=== PATIENT | male | born 1995 | race Caucasian/White ===

== ENCOUNTER 2019-10-23 10:01 | Emergency (ER) | payer BC, MEDICAID ==
[~2019-10-23] VITALS: Ht 173 cm; Wt 68.0 kg
[~2019-10-23 10:01] MED LIST: ACHD5005 PO; CEPH-507 PO; CEPH500C PO; KETO75CA PO
[2019-10-23] MEDS ORDERED: OSLT75C PO (11:12)
--- NOTE | 2019-10-23 11:12 | ED Cough/URI ---
General Chief Complaint: Cough/Cold/Flu Symptoms Stated Complaint: COUGH/BODY ACHES Nursing Triage Note: Patient reports cough and body aches starting 1 day ago Sepsis Screen: No Definite Risk Allergies and Home Medications Allergies Coded Allergies: No Known Drug Allergies (Unverified , 06/14/14) Home Medications No Active Prescriptions or Reported Meds Past Ntisubd-Jfmjkc-Mrzyhp Hx Patient Social History Alcohol Use: Regular Use Alcohol Beverage of Choice: Beer Recreational Drug Use: No Smoking Status: Current Everyday Smoker Type Used: Cigarettes Recent Foreign Travel: No Contact w/Someone Who Travel: No Recent Infectious Disease Expo: No Immunizations Up To Date Tetanus Booster (TDap): Less than 5yrs Seasonal Allergies Seasonal Allergies: No Past Medical History Surgeries: No Respiratory: No Cardiac: No Neurological: No Reproductive Disorders: No Sexually Transmitted Disease: No HIV/AIDS: No Gastrointestinal: No Musculoskeletal: No Endocrine: No Cancer: No Psychosocial: No Integumentary: No Blood Disorders: No Adverse Reaction/Blood Tranf: No Family Medical History No Pertinent Family Hx Physical Exam Vital Signs - First Documented 10/23/19 10:09 Temp 38.1 Pulse 83 Resp 18 B/P (MAP) 123/71 (88) Pulse Ox 98 Capillary Refill : Less Than 3 Seconds Height: 5'4" Weight: 130lbs. oz. [id number]; 22.00 BMI Method:Estimated Procedures/Interventions Suture Size: 4-0 Progress/Results/Core Measures Suspected Sepsis Recent Fever Within 48 Hours: No Infection Criteria Present: Suspected New Infection New/Unexplained Altered Menta: No Sepsis Screen: No Definite Risk SIRS Temperature: Pulse: 83 Respiratory Rate: 18 Blood Pressure 123 /71 Mean: 88 Results/Orders Micro Results Microbiology 10/23/19 Influenza Types A,B Antigen (KAI) - Final, Complete My Orders Orders - BASIL LIRA DO Influenza A And B Antigens (10/23/19 10:16) Vital Signs/I&O 10/23/19 10:09 Temp 38.1 Pulse 83 Resp 18 B/P (MAP) 123/71 (88) Pulse Ox 98 Capillary Refill : Less Than 3 Seconds Blood Pressure Mean: 88 Departure Impression Primary Impression: Influenza B Disposition: 01 HOME, SELF-CARE Condition: Stable Departure-Patient Inst. Referrals: NO,LOCAL PHYSICIAN (PCP/Family) Primary Care Physician Patient Instructions: Flu, Adult (DC) Add. Discharge Instructions: LOTS OF CLEAR LIQUIDS--WATER, BROTH, JELLO, GATORADE--DRINK ENOUGH SO YOU ARE URINATING EVERY 2-3 HOURS WHILE AWAKE. TYLENOL 1 GRAM / MOTRIN 800 MG 4 TIMES A DAY FOR PAIN OR FEVER OVER THE COUNTER MUCINEX DM FOR COUGH AND CONGESTION FOLLOW UP WITH DR OF YONI IN 4-5 DAYS IF NO BETTER, AND CALL TOMORROW TO MAKE AN APPOINTMENT TO ESTABLISH CARE WITH DR OF YONI FOR REGULAR MEDICAL CARE All discharge instructions reviewed with patient and/or family. Voiced understanding. Scripts Oseltamivir Phosphate (Tamiflu) 75 Mg Cap 75 MG PO BID, #10 CAP Prov: BASIL LIRA DO 10/23/19 Work/School Note: [employer], Work Release Form Date Seen in the Emergency Department: Oct 23, 2019 Return to Work: Oct 30, 2019 BASIL LIRA DO Oct 23, 2019 11:12
[2019-10-23 11:20] VITALS: BP 123/71
== END 2019-10-23 11:19 | disposition home or self-care (01) ==
LOC: EDUNIT# 10:01 → ER 10:02
DX: J10.1 Influenza due to other identified influenza virus with other respiratory manifestations (principal); F17.210 Nicotine dependence, cigarettes, uncomplicated
CPT/HCPCS: 87804

== ENCOUNTER 2021-01-15 10:52 | Emergency (ER) | payer SELFPAY ==
[~2021-01-15] VITALS: Ht 172.7 cm; Wt 79.5 kg
[~2021-01-15 10:52] MED LIST changes: +OSLT75C PO
[2021-01-15 12:20] VITALS: BP 113/78
[2021-01-15] MEDS ORDERED: ONDA4TAB11 PO (12:23)
--- NOTE | 2021-01-15 12:24 | ED GI ---
General Chief Complaint: Abdominal/GI Problems Stated Complaint: ABD PAIN, N/V Nursing Triage Note: AMB TO ROOM WITH STEP MOTHER PATIENT REPORTS FOR APX 1 YEAR HAS HAD PROBLEMS WITH HIS STOMACH. VOMITS AFTER EATING GREASY FOOD. ALSO REPORTS DOES DRINK BUT NOT EVERY DAY LAST HE DRANK WAS 5 DAYS AGO. DID HAVE COVID 1 YEAR AGO. Sepsis Screen: No Definite Risk History of Present Illness Date Seen by Provider: January 15, 2021 Time Seen by Provider: 11:00 Initial Comments 25-year-old male presents for a 1 year history of intermittent abdominal pain in the right upper quadrant with associated nausea and vomiting. The patient reports his symptoms are worse after he has consumed alcohol or eaten fried/spicy foods. When the patient eats a bland diet he has no symptoms. He reports no vomiting or diarrhea for the last 24 hours. He has been drinking more water lately. He has had no previous abdominal surgeries. He does not have a primary care provider. He is not reporting pain at this time, but occasional pressure. Timing/Duration: Other (1 year, intermittently. Worse over the last 2 to 3 weeks.) Severity/Quality: Mild (When symptomatic) Radiation: No Radiation Activities at Onset: Other (Dietary) Associated Symptoms: Denies Symptoms Allergies and Home Medications Allergies Coded Allergies: No Known Drug Allergies (Unverified , 06/14/14) Home Medications Ondansetron 4 Mg Tab.rapdis, 4 MG PO Q6H PRN for NAUSEA/VOMITING Prescribed by: ELI SCHUMACHER on 01/15/21 1223 Oseltamivir Phosphate 75 Mg Cap, 75 MG PO BID Prescribed by: BASIL LIRA on 10/23/19 1112 Patient Home Medication List Home Medication List Reviewed: Yes Review of Systems Review of Systems Constitutional: no symptoms reported, see HPI Gastrointestinal: See HPI, Abdominal Pain; Denies Constipated; Diarrhea, Nausea; Denies Rectal Bleeding; Vomiting All Other Systems Reviewed Negative Unless Noted: Yes Past Jgvwnfx-Bkbqdb-Brbkwa Hx Past Med/Social Hx: Reviewed Nursing Past Med/Soc Hx Patient Social History Alcohol Use: Regular Use Number of Drinks Today: AA Alcohol Beverage of Choice: Beer Smoking Status: Current Everyday Smoker Type Used: Cigarettes Recent Infectious Disease Expo: No Immunizations Up To Date Tetanus Booster (TDap): Less than 5yrs Seasonal Allergies Seasonal Allergies: No Past Medical History Surgeries: No Respiratory: No Cardiac: No Neurological: No Reproductive Disorders: No Sexually Transmitted Disease: No HIV/AIDS: No Gastrointestinal: No Musculoskeletal: No Endocrine: No HEENT: No Cancer: No Psychosocial: No Integumentary: No Blood Disorders: No Adverse Reaction/Blood Tranf: No Family Medical History No Pertinent Family Hx Physical Exam Vital Signs Vital Signs - First Documented 01/15/21 11:20 Temp 35.7 Pulse 62 Resp 18 B/P (MAP) 113/78 (90) Pulse Ox 98 O2 Delivery Room Air Capillary Refill : Less Than 3 Seconds Height/Weight/BMI Height: 5'4" Weight: 130lbs. oz. 58.333717fp; 26.00 BMI Method:Estimated General Appearance: WD/WN, no apparent distress HEENT: PERRL/EOMI, normal ENT inspection, TMs normal, pharynx normal Neck: non-tender, full range of motion, supple, normal inspection Respiratory: chest non-tender, lungs clear, normal breath sounds Cardiovascular: normal peripheral pulses, regular rate, rhythm Gastrointestinal: normal bowel sounds, non tender, soft; No distended, No guarding, No rebound, No tenderness, No hernia, No mass, No hepatomegaly, No spleenomegaly; other (Negative Manning sign.) Extremities: normal range of motion, non-tender, normal inspection, normal capillary refill Back: normal inspection, no CVA tenderness Neurologic/Psychiatric: no motor/sensory deficits, alert, normal mood/affect Skin: normal color, warm/dry Procedures/Interventions Suture Size: 4-0 Progress/Results/Core Measures Results/Orders Vital Signs/I&O 01/15/21 01/15/21 11:20 12:20 Temp 35.7 35.7 Pulse 62 62 Resp 18 18 B/P (MAP) 113/78 (90) 113/78 (90) Pulse Ox 98 98 O2 Delivery Room Air Blood Pressure Mean: 90 Progress Progress Note : Time: 11:00 Progress Note Patient seen and evaluated, based on his current exam and vital signs no imaging studies would be recommended at this time as this can be evaluated and treated by a primary care provider. Since he is not currently having symptoms and he has improvement in his symptoms when he watches his diet and limits his alcohol I would recommend conservative treatment at this time. His stepmother is asking for more aggressive management. Offered to obtain labs if there is any elevated WBC or other abnormal labs I would be happy to schedule an ultrasound otherwise this can be done on an outpatient basis since the patient is not emergent at this time. Patient and stepmother declined wanting to proceed with labs at this time. Discussed conservative measures in depth and establishing care with a primary care provider or following up with a general surgeon for further gallbladder work-up. If symptoms worsen the patient was encouraged to return to the emergency department. Stressed the importance of maintaining a gallbladder diet and increasing water while limiting alcohol intake. Patient and step- mother were agreeable with this treatment plan. Discharge instructions and return precautions reviewed. Departure Impression Primary Impression: Abdominal pain Qualified Codes: R10.84 - Generalized abdominal pain Additional Impressions: Diarrhea Qualified Codes: R19.7 - Diarrhea, unspecified Vomiting Qualified Codes: R11.11 - Vomiting without nausea Disposition: HOME, SELF-CARE Condition: Improved Departure-Patient Inst. Decision time for Depature: 12:15 Referrals: [facility]/BRAYDEN CRUZ BRETT D DO NO,LOCAL PHYSICIAN (PCP) Primary Care Physician Patient Instructions: Gallbladder Diet, Gallstones Add. Discharge Instructions: Adhere to the gallbladder diet, avoiding any fried foods, spicy foods and limiting alcohol intake. Increase water intake, 16 ounces every 2 hours while awake. Establish care with a primary care provider at [facility]. If symptoms are not improving or worsen see your primary care provider for an ultrasound of your gallbladder. You may call for an appointment with a general surgeon, if your symptoms are not improving or worsen. Use an lodi-umw-zfuzofn antidiarrheal as needed. Use Zofran as needed for nausea and vomiting. Return to the emergency department for new, urgent healthcare. All discharge instructions reviewed with patient and/or family. Voiced understanding. Scripts Ondansetron (Ondansetron Odt) 4 Mg Tab.rapdis 4 MG PO Q6H PRN for NAUSEA/VOMITING, #8 TAB 0 Refills Prov: ELI SCHUMACHER 01/15/21 ELI SCHUMACHER January 15, 2021 12:24
== END 2021-01-15 12:20 | disposition home or self-care (01) ==
LOC: EDUNIT# 10:52 → ER 10:54
DX: R10.11 Right upper quadrant pain (principal); R19.7 Diarrhea, unspecified; R11.2 Nausea with vomiting, unspecified; F17.210 Nicotine dependence, cigarettes, uncomplicated
CPT/HCPCS: 99282

== ENCOUNTER 2021-02-20 08:33 | Emergency (ER) | payer SELFPAY ==
[~2021-02-20] VITALS: Ht 170 cm; Wt 81.8 kg
[~2021-02-20 08:33] MED LIST changes: +ONDA4TAB11 PO
--- NOTE | 2021-02-20 08:57 | ED Abdominal Pain ---
General Chief Complaint: Abdominal/GI Problems Stated Complaint: ABD PAIN Nursing Triage Note: AMB TO ED WITH C/O ABD PAIN FOR 5 DAYS NO VOMITING Sepsis Screen: No Definite Risk Source of Information: Patient Exam Limitations: No Limitations History of Present Illness Date Seen by Provider: Feb 20, 2021 Time Seen by Provider: 08:57 Initial Comments Patient is a 25-year-old male who presents to the emergency department today with a chief complaint of epigastric and bilateral upper abdominal discomfort, "pressure". Patient states that he has had these symptoms for about the last 5 days and he states the pain is getting worse. For the first 3 days of the discomfort he had nausea and vomiting he states the last time he vomited was yesterday. Patient states food makes his pain worse. He denies burning in the epigastrium he states it is more of a pressure. He states he had similar symptoms about a year ago but it improved. Patient denies any fevers or chills. No blood in his vomitus. No recent black or bloody stools, last bowel movement was a little bit "runny" yesterday and normal. All other review of systems reviewed and negative except as stated above. Timing/Duration: 4-5 Days Severity/Quality: Moderate, Other (pressure and pain) Location: RUQ, LUQ, Epigastric Radiation: No Radiation Modifying Factors: Improves With Other (Patient states he took 800 mg of ibuprofen yesterday and it helped "a little") Associated Symptoms: Denies Symptoms Allergies and Home Medications Allergies Coded Allergies: No Known Drug Allergies (Unverified , 06/14/14) Home Medications Ondansetron 4 Mg Tab.rapdis, 4 MG PO Q6H PRN for NAUSEA/VOMITING Prescribed by: ELI SCHUMACHER on 01/15/21 1223 Oseltamivir Phosphate 75 Mg Cap, 75 MG PO BID Prescribed by: BASIL LIRA on 10/23/19 1112 Patient Home Medication List Home Medication List Reviewed: Yes Review of Systems Review of Systems Constitutional: see HPI EENTM: No Symptoms Reported Respiratory: No Symptoms Reported Cardiovascular: No Symptoms Reported Gastrointestinal: Abdominal Pain, Nausea, Poor Appetite, Vomiting Genitourinary: No Symptoms Reported Musculoskeletal: no symptoms reported Skin: no symptoms reported All Other Systems Reviewed Negative Unless Noted: Yes Past Jekovpc-Usbees-Diviqo Hx Patient Social History Alcohol Beverage of Choice: Beer Type Used: Cigarettes Recent Infectious Disease Expo: No Immunizations Up To Date Tetanus Booster (TDap): Less than 5yrs Seasonal Allergies Seasonal Allergies: No Past Medical History Surgeries: No Respiratory: No Cardiac: No Neurological: No Reproductive Disorders: No Sexually Transmitted Disease: No HIV/AIDS: No Gastrointestinal: No Musculoskeletal: No Endocrine: No HEENT: No Cancer: No Psychosocial: No Integumentary: No Blood Disorders: No Adverse Reaction/Blood Tranf: No Family Medical History No Pertinent Family Hx Physical Exam Vital Signs Vital Signs - First Documented 02/20/21 08:47 Temp 36.9 Pulse 92 Resp 18 B/P (MAP) 122/98 (106) Pulse Ox 96 O2 Delivery Room Air Capillary Refill : Less Than 3 Seconds Height/Weight/BMI Height: 5'4" Weight: 130lbs. oz. 58.391745ju; 28.00 BMI Method:Estimated General Appearance: WD/WN, no apparent distress Neck: full range of motion Respiratory: lungs clear, normal breath sounds, no respiratory distress, no accessory muscle use Cardiovascular: regular rate, rhythm Gastrointestinal: normal bowel sounds, soft, guarding (Voluntary guarding), tenderness (Epigastrium, right upper quadrant) Extremities: normal range of motion, non-tender, normal inspection Neurologic/Psychiatric: no motor/sensory deficits, alert, normal mood/affect, oriented x 3 Skin: normal color, warm/dry Procedures/Interventions Suture Size: 4-0 Progress/Results/Core Measures Results/Orders Lab Results Laboratory Tests Test 02/20/21 09:10 Range/Units White Blood Count 5.5 4.3-11.0 10^3/uL Red Blood Count 4.77 4.30-5.52 10^6/uL Hemoglobin 14.2 13.3-17.7 g/dL Hematocrit 42 40-54 % Mean Corpuscular Volume 89 80-99 fL Mean Corpuscular Hemoglobin 30 25-34 pg Mean Corpuscular Hemoglobin Concent 34 32-36 g/dL Red Cell Distribution Width 12.1 10.0-14.5 % Platelet Count 313 130-400 10^3/uL Mean Platelet Volume 9.7 9.0-12.2 fL Immature Granulocyte % (Auto) 1 % Neutrophils (%) (Auto) 53 42-75 % Lymphocytes (%) (Auto) 34 12-44 % Monocytes (%) (Auto) 10 0-12 % Eosinophils (%) (Auto) 2 0-10 % Basophils (%) (Auto) 0 0-10 % Neutrophils # (Auto) 2.9 1.8-7.8 10^3/uL Lymphocytes # (Auto) 1.9 1.0-4.0 10^3/uL Monocytes # (Auto) 0.6 0.0-1.0 10^3/uL Eosinophils # (Auto) 0.1 0.0-0.3 10^3/uL Basophils # (Auto) 0.0 0.0-0.1 10^3/uL Immature Granulocyte # (Auto) 0.0 0.0-0.1 10^3/uL Sodium Level 141 135-145 MMOL/L Potassium Level 4.3 3.6-5.0 MMOL/L Chloride Level 108 H 98-107 MMOL/L Carbon Dioxide Level 21 21-32 MMOL/L Anion Gap 12 5-14 MMOL/L Blood Urea Nitrogen 9 7-18 MG/DL Creatinine 0.67 0.60-1.30 MG/DL Estimat Glomerular Filtration Rate > 60 BUN/Creatinine Ratio 13 Glucose Level 94 70-105 MG/DL Calcium Level 8.9 8.5-10.1 MG/DL Corrected Calcium 8.6 8.5-10.1 MG/DL Total Bilirubin 1.1 H 0.1-1.0 MG/DL Aspartate Amino Transf (AST/SGOT) 40 H 5-34 U/L Alanine Aminotransferase (ALT/SGPT) 87 H 0-55 U/L Alkaline Phosphatase 83 40-136 U/L Total Protein 7.7 6.4-8.2 GM/DL Albumin 4.4 3.2-4.5 GM/DL Lipase 17 8-78 U/L My Orders Orders - TIM JOSE MD Ed Iv/Invasive Line Start (02/20/21 09:05) Cbc With Automated Diff (02/20/21 09:05) Comprehensive Metabolic Panel (02/20/21 09:05) Lipase (02/20/21 09:05) Dicyclomine Injection (Bentyl Injection) (02/20/21 09:05) [place] Gallbladder [id number] (02/20/21 09:48) Vital Signs/I&O 02/20/21 08:47 Temp 36.9 Pulse 92 Resp 18 B/P (MAP) 122/98 (106) Pulse Ox 96 O2 Delivery Room Air Blood Pressure Mean: 106 Departure Impression Primary Impression: Abdominal pain Qualified Codes: R10.13 - Epigastric pain Disposition: 01 HOME, SELF-CARE Condition: Stable Departure-Patient Inst. Decision time for Depature: 10:36 Referrals: [facility]/SHANE HINTON,LOCAL PHYSICIAN (PCP) Primary Care Physician Patient Instructions: Abdominal Pain, Adult ED Add. Discharge Instructions: Take an wanr-wvl-ercoswe acid electrical prospector such as Pepcid, daily for the next 4 to 6 weeks. I have given you a prescription for Bentyl, the pain medicine, take this every 6 hours as needed for abdominal cramps and spasms. Nausea medications, Zofran every 8 hours as needed for nausea. Follow-up with a primary care physician, I have given you referral information for [facility]. Return to the emergency room for any increased or worsening pain, fever, vomiting or other emergent concerning symptoms. Scripts Dicyclomine HCl (Dicyclomine HCl) 20 Mg Tablet 20 MG PO Q6H PRN for abdominal pain, #30 TAB Prov: TIM JOSE MD 02/20/21 Ondansetron (Ondansetron Odt) 4 Mg Tab.rapdis 4 MG PO Q8H for nausea, #20 TAB Prov: TIM JOSE MD 02/20/21 TIM JOSE MD Feb 20, 2021 08:57
[2021-02-20] MEDS ORDERED: DICYCLOMINE 10 MG/ML (BENTYL) 2 ML AMP IM STA (09:05)
[2021-02-20 09:19] LABS: BASOPHILS % (AUTO) 0 % (0-10); EOSINOPHILS # (AUTO) 0.1 10^3/uL (0.0-0.3); EOSINOPHILS % (AUTO) 2 % (0-10); HEMATOCRIT 42 % (40-54); HEMOGLOBIN 14.2 g/dL (13.3-17.7); LYMPHOCYTES # (AUTO) 1.9 10^3/uL (1.0-4.0); LYMPHOCYTES % (AUTO) 34 % (12-44); MEAN CORPUSCULAR HEMOGLOBIN 30 pg (25-34); MEAN CORPUSCULAR HGB CONC 34 g/dL (32-36); MEAN CORPUSCULAR VOLUME 89 fL (80-99); MEAN PLATELET VOLUME 9.7 fL (9.0-12.2); MONOCYTES # (AUTO) 0.6 10^3/uL (0.0-1.0); MONOCYTES % (AUTO) 10 % (0-12); NEUTROPHILS # (AUTO) 2.9 10^3/uL (1.8-7.8); NEUTROPHILS % (AUTO) 53 % (42-75); PLATELET COUNT 313 10^3/uL (130-400); WHITE BLOOD COUNT 5.5 10^3/uL (4.3-11.0)
[2021-02-20 09:27] LABS: ALBUMIN 4.4 GM/DL (3.2-4.5)
[2021-02-20 09:28] LABS: CHLORIDE 108 MMOL/L (98-107); POTASSIUM 4.3 MMOL/L (3.6-5.0); SODIUM 141 MMOL/L (135-145)
[2021-02-20 09:29] LABS: CALCIUM 8.9 MG/DL (8.5-10.1)
[2021-02-20 09:30] LABS: GLUCOSE 94 MG/DL (70-105); TOTAL PROTEIN 7.7 GM/DL (6.4-8.2)
[2021-02-20 09:31] LABS: CARBON DIOXIDE 21 MMOL/L (21-32)
[2021-02-20 09:32] LABS: BILIRUBIN,TOTAL 1.1 MG/DL (0.1-1.0)
[2021-02-20 09:34] LABS: ALKALINE PHOSPHATASE 83 U/L (40-136); CREATININE SERUM 0.67 MG/DL (0.60-1.30); GFR ESTIMATED > 60
[2021-02-20 09:35] LABS: BUN/CREATININE RATIO 13
[2021-02-20 09:37] LABS: ALANINE AMINOTRANSFERASE 87 U/L (0-55); LIPASE 17 U/L (8-78)
[2021-02-20] MEDS ORDERED: DICY20TA10 PO (10:38)
[2021-02-20] MEDS ORDERED: ONDA4TAB11 PO (10:38)
[2021-02-20 10:47] VITALS: BP 155/99
--- NOTE | 2021-02-20 11:15 | Diagnostic Imaging Report ---
PROCEDURE: US Gallbladder. TECHNIQUE: Multiple real-time grayscale images were obtained over the right upper quadrant in various projections. INDICATION: Right upper quadrant pain and elevated liver function tests. There are no prior studies available for comparison. There is no evidence of cholelithiasis or acute cholecystitis. However, the common bile duct was not well visualized. The pancreas is also obscured by bowel gas as well as the midportion of the abdominal aorta. The proximal aorta is unremarkable. The inferior vena cava shows no abnormality. The liver does not appear to be enlarged. There is no focal mass involving the liver and the biliary tree is not abnormally distended. Spectral and color-flow imaging of the portal vein shows the vein is patent. The right kidney is within normal limits. IMPRESSION: 1. There is no evidence of cholelithiasis or acute cholecystitis, but the common bile duct is not well visualized. 2. If clinical concern regarding an underlying abnormality of the gallbladder or common bile duct persists and further imaging is desired, then nuclear medicine hepatobiliary scan would be recommended for additional study. 3. The liver does not appear to be enlarged and there is no focal mass involving the liver. Dictated by: Dictated on workstation # [id number]
== END 2021-02-20 10:46 | disposition home or self-care (01) ==
LOC: EDUNIT# 08:33 → ER 08:35
DX: R10.13 Epigastric pain (principal)
CPT/HCPCS: 36415; 76705; 80053; 83690; 85025